=== PATIENT | male | born 1955 | race Caucasian/White ===

== ENCOUNTER 2021-11-21 10:09 | Day surgery (SDC) | payer BC ==
[~2021-11-21] VITALS: Ht 175.3 cm; Wt 93.0 kg
[~2021-11-21 10:09] MED LIST: AMOX250 PO; ATOR40TA PO; Aspir 8181 MG PO; LEVSOD100 PO; NEBI5 PO; TRIA15CR3; Viagra100 MG; ZEBUTAL 50-3251 EAC1 PO; Zanaflex2 M1 PO
--- NOTE | 2021-11-21 13:30 | NUR ---
PT TO RECOVERY ROOM POST PROCEDURE. PT AWAKE AND CONVERSING APPROPRIATELY; DENIES PAIN POST PROCEUDRE. MONITOR SB/SR 50-60'S, B/P 131/82, SPO2 97% RA, AFEBRILE. R RADIAL NO SWELLING/HEMATOMA, TR BAND IN PLACE; RUE POSITIVE PLEUTH POST TR BAND PLACEMENT. PT TAKING LUNCH WITHOUT ISSUE.
--- NOTE | 2021-11-21 13:40 | NUR ---
DR ALONSO IN TO DISCUSS RESULTS OF PROCEDURE.
[2021-11-21] MEDS ORDERED: METO100ER PO (14:10)
[2021-11-21] MEDS ORDERED: LISI5 PO (14:11)
[2021-11-21] MEDS ORDERED: NITR.4SL SL (14:11)
--- NOTE | 2021-11-21 14:58 | NUR ---
PT AMB TO THE BATHROOM, GAIT STEADY, SITE UNCHANGED WITH ACTIVITY.
--- NOTE | 2021-11-21 16:10 | NUR ---
PT DRESSED SELF WITHOUT ISSUE. TR BAND REMOVED, CLOTH DOT, AND WRIST IMMOBILIZER PLACED; IV REMOVED-CANNULA INTACT. PT'S SO HERE.
--- NOTE | 2021-11-21 16:17 | NUR ---
PT AND SO RECEIVED DISCHARGE INSTRUCTIONS, MED LIST AND AFTER CARE INSTRUCTIONS; VERBALIZED GOOD UNDERSTANDING. PT LEFT FACILITY VIA W/C, CONDITION STABLE.
== END 2021-11-21 16:17 | disposition home or self-care (01) ==
LOC: MHTC 10:09
DX: I25.118 Atherosclerotic heart disease of native coronary artery with other forms of angina pectoris (principal); J44.9 Chronic obstructive pulmonary disease, unspecified; E78.5 Hyperlipidemia, unspecified; E03.9 Hypothyroidism, unspecified; Z79.82 Long term (current) use of aspirin
CPT/HCPCS: 76937; 85347; 92978; 93458; 93571; 93572; 99152; 99153; A9270; C1753; C1769; C1887; C1894; J0153; J0461; J1644; J2250; J3010; J7030; J7050; Q9967

== ENCOUNTER 2023-11-10 10:16 | Day surgery (SDC) | payer MEDICARE ==
[~2023-11-10] VITALS: Ht 175.3 cm; Wt 88.3 kg
[~2023-11-10 10:16] MED LIST changes: +LISI5 PO; +Lactated Ringer's 1,000 ML IV ONE; +METO100ER PO; +NITR.4SL SL; +propofoL 50 ML IV ONE
[2023-11-10] MEDS ORDERED: Lactated Ringer's 1,000 ML IV ONE (10:54)
[2023-11-10 12:34] VITALS: BP 103/68
== END 2023-11-10 12:33 | disposition home or self-care (01) ==
LOC: ORSCSDS 10:16
PROVIDERS: Internal Medicine Gastroenterology
PROC: 0DBK8ZX Excision of Ascending Colon, Via Natural or Artificial Opening Endoscopic, Diagnostic (ICD-10-PCS; principal; 2023-11-10 11:15)
PROC: 0DBL8ZX Excision of Transverse Colon, Via Natural or Artificial Opening Endoscopic, Diagnostic (ICD-10-PCS; principal; 2023-11-10 11:15)
PROC: 0DBP8ZX Excision of Rectum, Via Natural or Artificial Opening Endoscopic, Diagnostic (ICD-10-PCS; principal; 2023-11-10 11:15)
DX: Z12.11 Encounter for screening for malignant neoplasm of colon (principal); D12.3 Benign neoplasm of transverse colon; D12.5 Benign neoplasm of sigmoid colon; K62.1 Rectal polyp; D12.2 Benign neoplasm of ascending colon; K57.30 Diverticulosis of large intestine without perforation or abscess without bleeding; K64.4 Residual hemorrhoidal skin tags; Z86.010 Personal history of colon polyps; I10 Essential (primary) hypertension; J44.9 Chronic obstructive pulmonary disease, unspecified; E78.5 Hyperlipidemia, unspecified; E03.9 Hypothyroidism, unspecified; Z79.82 Long term (current) use of aspirin; Z79.899 Other long term (current) drug therapy; Z87.891 Personal history of nicotine dependence
CPT/HCPCS: 88305; J2704; J7120

== ENCOUNTER 2024-01-26 16:08 | Inpatient (IN) | payer MEDICARE ==
[~2024-01-26] VITALS: Ht 175.3 cm; Wt 91.7 kg
[~2024-01-26 16:08] MED LIST changes: -Lactated Ringer's 1,000 ML IV ONE; -propofoL 50 ML IV ONE
[2024-01-26] MEDS ORDERED: Lactated Ringer's 1,000 ML IV ONE (16:40)
[2024-01-26 16:45] LABS: BASOPHILS ABSOLUTE AUTO 0.06 K/mm3 (0.00-0.23); BASOPHILS PERCENT AUTO 0 % (0-2); EOSINOPHILS ABSOLUTE AUTO 0.04 K/mm3 (0.00-0.68); EOSINOPHILS PERCENT AUTO 0 % (0-6); Hematocrit 45.4 % (37.0-53.0); Hemoglobin 15.6 g/dL (13.5-17.5); IMMATURE GRAN ABSOLUTE AUTO 0.18 K/mm3 (0.00-0.10); IMMATURE GRAN PERCENT AUTO 1 % (0-1); LYMPHOCYTES ABSOLUTE AUTO 2.26 K/mm3 (0.84-5.20); LYMPHOCYTES PERCENT AUTO 14 % (21-46); MONOCYTES ABSOLUTE AUTO 1.75 K/mm3 (0.16-1.47); MONOCYTES PERCENT AUTO 11 % (4-13); Mean Corpuscular HGB 31.8 pg (26.0-34.0); Mean Corpuscular HGB Conc 34.4 g/dL (31.5-36.5); Mean Corpuscular Volume 93 fL (80-100); Mean Platelet Volume 10.1 fL (9.1-12.4); NEUTROPHILS ABSOLUTE AUTO 11.75 K/mm3 (1.96-9.15); NEUTROPHILS PERCENT AUTO 73 % (41-73); Platelet Count 469 K/mm3 (150-400); RDW Standard Deviation 44.6 fL (35.1-46.3); Red Blood Cell Count 4.91 M/mm3 (4.30-5.90); White Blood Cell Count 16.04 K/mm3 (4.00-11.30)
[2024-01-26 17:00] LABS: International Normalized Ratio 0.99; Prothrombin Time Results 10.6 Sec (9.7-11.5)
[2024-01-26 17:14] LABS: Magnesium, Blood 2.3 mg/dL (1.6-2.4)
[2024-01-26 17:15] LABS: Albumin, Blood 3.2 g/dL (3.4-5.0); Albumin/Globulin Ratio 0.6 (0.8-1.8); Bun/Creatinine Ratio 10.1 (12.0-20.0); Calcium, Blood 10.4 mg/dL (8.5-10.1); Creatinine, Blood 0.99 mg/dL (0.60-1.20); Globulin, Blood 5.2 g/dL (2.2-4.0); Potassium, Blood 3.9 mmol/L (3.5-5.5); Total Protein, Blood 8.4 g/dL (6.4-8.2)
[2024-01-26 17:51] LABS: Influenza A, PCR NEGATIVE (NEGATIVE); Influenza B, PCR NEGATIVE (NEGATIVE); Resp Syncytial Virus, PCR NEGATIVE (NEGATIVE); SARS-Cov-2 (COVID-19) PCR, MMC NEGATIVE (NEGATIVE)
[2024-01-26] MEDS ORDERED: Azithromycin 250 MG Tab PO ONE (18:25)
[2024-01-26] MEDS ORDERED: Ketorolac Tromethamine 15mg Vial IV ONE (18:25)
[2024-01-26] MEDS ORDERED: CefTRIAXone Sodium 1,000 MG in NS 100 ML IV ONE (18:25)
[2024-01-26 19:25] LABS: Source, Urine Clean Catch
[2024-01-26 19:36] LABS: Appearance, Urine Clear (Clear); Bilirubin, Urine Neg (Neg); Blood, Urine Neg (Neg); Color, Urine Yellow (P-Yellow); Glucose Qualitative, Urine Neg (Neg); Ketones, Urine Neg (Neg); Leukocyte Esterase, Urine Neg (Neg); Nitrite, Urine Neg (Neg); Protein, Urine 1+ (Neg); Urobilinogen, Urine 2+ (Normal); pH, Urine 6.5 (5.0-8.0)
[2024-01-26] MEDS ORDERED: Ondansetron HCl 2 MG / ML 2ML Vial IV PRN (21:00)
[2024-01-26] MEDS ORDERED: Enoxaparin 40 MG/0.4 ML SYR SC SCH (21:00)
[2024-01-26] MEDS ORDERED: NS 1,000 ML IV SCH (21:00)
[2024-01-26] MEDS ORDERED: FLU VACC TS2024-25(6MOS UP)/PF 45 MCG/0.5 ML SYRINGE IM ONE (21:00)
[2024-01-26] MEDS ORDERED: Ketorolac Tromethamine 30mg Vial IV PRN (23:15)
[2024-01-26] MEDS ORDERED: FentaNYL Citrate 50 MCG/ML 2 ML Injection IV PRN (23:15)
[2024-01-27] MEDS ORDERED: Aspirin 325 MG Tab PO SCH
[2024-01-27 04:45] VITALS: BP 145/78
[2024-01-27 04:59] LABS: BASOPHILS ABSOLUTE AUTO 0.05 K/mm3 (0.00-0.23); BASOPHILS PERCENT AUTO 0 % (0-2); EOSINOPHILS ABSOLUTE AUTO 0.11 K/mm3 (0.00-0.68); EOSINOPHILS PERCENT AUTO 1 % (0-6); Hematocrit 39.3 % (37.0-53.0); Hemoglobin 13.7 g/dL (13.5-17.5); IMMATURE GRAN ABSOLUTE AUTO 0.12 K/mm3 (0.00-0.10); IMMATURE GRAN PERCENT AUTO 1 % (0-1); LYMPHOCYTES ABSOLUTE AUTO 1.39 K/mm3 (0.84-5.20); LYMPHOCYTES PERCENT AUTO 12 % (21-46); MONOCYTES ABSOLUTE AUTO 0.98 K/mm3 (0.16-1.47); MONOCYTES PERCENT AUTO 9 % (4-13); Mean Corpuscular HGB 31.6 pg (26.0-34.0); Mean Corpuscular HGB Conc 34.9 g/dL (31.5-36.5); Mean Corpuscular Volume 91 fL (80-100); Mean Platelet Volume 9.7 fL (9.1-12.4); NEUTROPHILS ABSOLUTE AUTO 8.73 K/mm3 (1.96-9.15); NEUTROPHILS PERCENT AUTO 77 % (41-73); Platelet Count 369 K/mm3 (150-400); RDW Coefficient Variation 12.9 % (11.7-14.2); RDW Standard Deviation 43.2 fL (35.1-46.3); Red Blood Cell Count 4.34 M/mm3 (4.30-5.90); White Blood Cell Count 11.38 K/mm3 (4.00-11.30)
[2024-01-27 06:15] LABS: Albumin, Blood 2.6 g/dL (3.4-5.0); Albumin/Globulin Ratio 0.6 (0.8-1.8); Bilirubin, Total 0.8 mg/dL (0.1-1.0); Bun/Creatinine Ratio 14.5 (12.0-20.0); Calcium, Blood 9.4 mg/dL (8.5-10.1); Creatinine, Blood 0.97 mg/dL (0.60-1.20); Globulin, Blood 4.4 g/dL (2.2-4.0); Potassium, Blood 3.9 mmol/L (3.5-5.5)
[2024-01-27 07:09] VITALS: BP 126/79
[2024-01-27 14:39] VITALS: BP 157/84
[2024-01-27] MEDS ORDERED: Nitroglycerin 0.4 MG SUBL SL PRN (15:45)
[2024-01-27] MEDS ORDERED: Metoprolol Succinate 50 MG TABCR PO SCH (16:00)
[2024-01-27] MEDS ORDERED: Lisinopril 5 MG Tab PO SCH (16:00)
--- NOTE | 2024-01-27 17:03 | NUR ---
SHIFT SUMMARY AOX4, SBA TO THE BR. TWO BM'S THIS SHIFT. PAIN MANAGED WELL PER THE EMAR. NO EVENTS PER TELE. IV FLUIDS INFUSING. NO C/O CP OR PRESSURE. SHARP PAIN WITH DEEP INSPIRATIONS. HE CALLS AND MAKES HIS NEEDS KNOWN. REPOSITIONS SELF IN BED. CALL LIGHT WITHIN REACH, BED LOCKED AND IN THE LOWEST POSITION. WILL REPORT TO ONCOMING NURSE.
[2024-01-27] MEDS ORDERED: Azithromycin 500 MG in NS 250 ML IV SCH (18:00)
[2024-01-27] MEDS ORDERED: Atorvastatin 40 MG Tab PO SCH (18:00)
[2024-01-27] MEDS ORDERED: CefTRIAXone Sodium 1,000 MG in NS 100 ML IV SCH (18:00)
[2024-01-27] MEDS ORDERED: Lactobacil 2-S.Thermo-Bifido 1 1 Cap PO SCH (21:00)
[2024-01-28 05:16] VITALS: BP 141/87
[2024-01-28 05:42] LABS: BASOPHILS ABSOLUTE AUTO 0.05 K/mm3 (0.00-0.23); BASOPHILS PERCENT AUTO 1 % (0-2); EOSINOPHILS ABSOLUTE AUTO 0.15 K/mm3 (0.00-0.68); EOSINOPHILS PERCENT AUTO 2 % (0-6); Hematocrit 39.2 % (37.0-53.0); Hemoglobin 13.7 g/dL (13.5-17.5); IMMATURE GRAN ABSOLUTE AUTO 0.11 K/mm3 (0.00-0.10); IMMATURE GRAN PERCENT AUTO 1 % (0-1); LYMPHOCYTES ABSOLUTE AUTO 1.85 K/mm3 (0.84-5.20); LYMPHOCYTES PERCENT AUTO 18 % (21-46); MONOCYTES ABSOLUTE AUTO 1.18 K/mm3 (0.16-1.47); MONOCYTES PERCENT AUTO 12 % (4-13); Mean Corpuscular HGB 31.9 pg (26.0-34.0); Mean Corpuscular HGB Conc 34.9 g/dL (31.5-36.5); Mean Corpuscular Volume 91 fL (80-100); NEUTROPHILS ABSOLUTE AUTO 6.78 K/mm3 (1.96-9.15); NEUTROPHILS PERCENT AUTO 67 % (41-73); Platelet Count 373 K/mm3 (150-400); RDW Coefficient Variation 13.1 % (11.7-14.2); RDW Standard Deviation 43.6 fL (35.1-46.3); Red Blood Cell Count 4.29 M/mm3 (4.30-5.90); White Blood Cell Count 10.12 K/mm3 (4.00-11.30)
[2024-01-28] MEDS ORDERED: Levothyroxine Sodium 0.15 MG Tab PO SCH (06:00)
--- NOTE | 2024-01-28 07:16 | NUR ---
SHIFT SUMMARY PATIENT IS ALERT AND ORIENTED. PATIENT HAS HAD NO ACUTE EVENTS THIS SHIFT. VITAL SIGNS REVIEWED. PATIENT HAS HAD NO EVENTS ON TELE. PATIENT HAS HAD PAIN REPORTED THIS SHIFT. MEDICATED PER SHIFT. PATIENT HAS HAD NO COMPLAINTS OF SOB, NAUSEA, OR VOMITTING. BED IN LOCKED AND LOWEST POSITION. CALL LIGHT IN PLACE.
[2024-01-28 07:20] VITALS: BP 153/92
[2024-01-28 14:48] VITALS: BP 135/80
--- NOTE | 2024-01-28 16:27 | NUR ---
PATIENT IS ALERT AND ORIENTED AND COOPERATIVE [facility]. C/O PLEURETIC PAIN, MEDICATED ONCE THIS SHIFT PER EMAR. ENCOURAGED TO USE IS AND FLUTTER VALVE. IND IN THE ROOM. USES THE URINAL. WILL CONTINUE TO MONITOR
[2024-01-28] MEDS ORDERED: NS 250 ML IV PRN (17:55)
[2024-01-28 19:22] VITALS: BP 134/82
[2024-01-29 06:02] VITALS: BP 141/80
--- NOTE | 2024-01-29 06:20 | NUR ---
SHIFT SUMMARY PATIENT IS ALERT AND ORIENTED. PATIENT HAS HAD NO ACUTE EVENTS THIS SHIFT. VITAL SIGNS REVIEWED. PATIENT HAS COMPLAINED OF PAIN BUT NEEDED NO MEDICATING. PATIENT HAS HAD NO COMPLAINTS OF SOB, NAUSEA OR VOMITTING THIS SHIFT. NO EVENTS ON TELE. BED IN LOCKED AND LOWEST POSITION. CALL LIGHT IN PLACE. WILL MONITOR UNTIL SHIFT CHANGE.
[2024-01-29 07:17] VITALS: BP 131/86
[2024-01-29 07:23] LABS: Hematocrit 37.8 % (37.0-53.0); Hemoglobin 12.9 g/dL (13.5-17.5); Mean Corpuscular HGB 31.4 pg (26.0-34.0); Mean Corpuscular HGB Conc 34.1 g/dL (31.5-36.5); Mean Corpuscular Volume 92 fL (80-100); Mean Platelet Volume 10.2 fL (9.1-12.4); Platelet Count 408 K/mm3 (150-400); RDW Coefficient Variation 12.8 % (11.7-14.2); RDW Standard Deviation 43.6 fL (35.1-46.3); Red Blood Cell Count 4.11 M/mm3 (4.30-5.90); White Blood Cell Count 8.62 K/mm3 (4.00-11.30)
[2024-01-29] MEDS ORDERED: VISBIOME 112.51 EACH (13:17)
[2024-01-29] MEDS ORDERED: CEFP200 PO (13:17)
== END 2024-01-29 14:28 | disposition home or self-care (01) | DRG 871 ==
LOC: ER 16:08 → MEDS 16:09 → ERHOLD 16:09 → MEDS 01-27 04:30
PROVIDERS: Family Medicine; Student in an Organized Health Care Education/Training Program; ADMIT Internal Medicine
DX: A41.9 Sepsis, unspecified organism (principal); J18.9 Pneumonia, unspecified organism; I48.91 Unspecified atrial fibrillation; I10 Essential (primary) hypertension; E03.9 Hypothyroidism, unspecified; E78.5 Hyperlipidemia, unspecified; K64.8 Other hemorrhoids; R73.9 Hyperglycemia, unspecified; E88.09 Other disorders of plasma-protein metabolism, not elsewhere classified; D75.839 Thrombocytosis, unspecified; K64.4 Residual hemorrhoidal skin tags; K57.30 Diverticulosis of large intestine without perforation or abscess without bleeding; M51.369 Other intervertebral disc degeneration, lumbar region without mention of lumbar back pain or lower extremity pain; Z79.82 Long term (current) use of aspirin; Z79.890 Hormone replacement therapy; Z79.899 Other long term (current) drug therapy; Z98.52 Vasectomy status; Z98.890 Other specified postprocedural states
CPT/HCPCS: 0241U; 36415; 71045; 71260; 80053; 83735; 83880; 84484; 85025; 85027; 85610; 85730; 93005; 93010; 93306; 96361; 96365-59; 96366; 96372; 96372-59; 96375-59; 96376-59; 99285-25; A9270; G0378; J0456; J0696; J1650; J1885; J7030; J7050; J7120; Q9967